=== PATIENT | female | born 1995 | race Caucasian/White ===

== ENCOUNTER 2017-04-29 12:43 | Inpatient (IN) ==
[2017-04-29] MEDS: LACTATED RINGERS 1,000 ML IV SCH ×2 (13:25→16:17)
[2017-04-29] MEDS ORDERED: BUTORPHANOL 2 MG/ML VIAL IV PRN (13:42)
[2017-04-29] MEDS ORDERED: MEPERIDINE 50 MG/1 ML VIAL IV PRN (13:42)
[2017-04-29] MEDS ORDERED: ONDANSETRON 4 MG/2 ML VIAL IV PRN ×2 (13:42→23:27)
[2017-04-29 14:10] LABS: Basophils % 0.1 % (0.0-0.8); Eosinophils % 0.1 % (0.00-10.9); Hematocrit 37.6 VOL% (35.7-47.0); Hemoglobin 13.8 GM/DL (12.0-16.0); Immature Granulocytes % 0.4 %; Immature Granulocytes Absolute 0.06 #; Lymphocytes # 1.7 10*3/uL (1.4-4.0); Lymphocytes % 12.6 % (21.3-54.2); Mean Corpuscular HGB Conc 36.7 GM/DL (32-36); Mean Corpuscular Hemoglobin 34 PG (27-34); Mean Corpuscular Volume 92.4 FL (87-102); Mean Platelet Volume 13.2 FL (9.6-12.0); Monocytes # 0.9 10*3/uL (0.11-0.8); Monocytes % 6.8 % (1.7-12.7); Platelet Count 130 T/CUMM (130-400); Red Blood Count 4.07 MC/CUMM (3.8-5.5); Red Cell Distribution Width 12.4 % (9.3-17.3); White Blood Count 13.8 T/CUMM (4-12)
[2017-04-29] MEDS ORDERED: CITRIC ACID/SODIUM CITRATE 30 ML UDCUP PO ONE (14:14)
[2017-04-29] MEDS ORDERED: FAMOTIDINE 20 MG/2 ML VIAL IV ONE (14:14)
[2017-04-29] MEDS ORDERED: diphenhydrAMINE 50 MG/1 ML VIAL IV PRN ×3 (14:15→23:27)
[2017-04-29] MEDS ORDERED: hydrOXYzine HCL 25 MG/1 ML VIAL IM PRN (14:15)
[2017-04-29] MEDS ORDERED: ePHEDrine 50 MG/ML AMP IV PRN (14:15)
[2017-04-29] MEDS ORDERED: PROMETHAZINE 25 MG/1 ML VIAL IM ONE (14:15)
[2017-04-29] MEDS ORDERED: fentaNYL 2 MCG/ROPIV 0.2% EPID 150 ML EPIDURAL SCH (14:15)
[2017-04-29] MEDS ORDERED: LACTATED RINGERS 1,000 ML IV ONE (14:28)
[2017-04-29] MEDS ORDERED: LACTATED RINGERS 1,000 ML IV SCH ×2 (14:30→23:30)
--- NOTE | 2017-04-29 15:34 | OB/GYN History & Physical ---
History of Present Illness Chief complaint: labor History of present illness: Ms. Yarbrough is a 22 year old female at 40 wks who presents today in labor. Pt seen yesterday and . Today 2-3 cm with contractions every 2-3 minutes. Reports that it started about 0500 and has gotten progressively worse throughout the day. Currently comfortable with epidural. course uneventful. No medical history. R/B/A to delivery reviewed. 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 FHTs reassuring. Contractions q 2-3 minutes. AROM, clear. 3-4/80/0), other Assessment and Plan (1) 40 weeks gestation of Status: Acute Current Visit: Yes (2) Active labor at term Status: Acute Assessment and plan: Anticipate AROM ~1525, clear Current Visit: Yes Results - Labs CBC & BMP: 04/29/17 14:01
[2017-04-29 16:51] LABS: Apearance,Urine CLEAR (Clear); Bacteria,Urine Occasional /HPF (Few); Bilirubin,Urine Negative (Negative); Blood, Urine Negative (Negative); Glucose,Urine (UA) Negative (Negative); Ketones,Urine 80 mg/dL (Negative); Mucus,Urine Occasional /LPF (Occasional); Nitrite,Urine Negative (Negative); Protein,Urine Negative; RBC,Urine 5 /HPF (0-4); Squamous Epithelial Cell,Urine Occasional /HPF (0-10); Urine Color Yellow (Yellow); Urine Specific Gravity 1.021 (1.001-1.035); Urine Urobilinogen < 2.0 EU/DL (0.2-1.0); WBC,Urine 1 /HPF (0-6)
[2017-04-29] MEDS ORDERED: OXYTOCIN/LR 20 UNIT/1,000 ML BAG IV ONE (19:23)
[2017-04-29] MEDS ORDERED: miSOPROStol 200 MCG TABLET VAG ONE (19:26)
[2017-04-29] MEDS ORDERED: miSOPROStol 200 MCG TABLET ONE (19:30)
[2017-04-29] MEDS ORDERED: METHYLERGONOVINE 0.2 MG/1 ML AMP ONE (19:30)
[2017-04-29] MEDS ORDERED: LIDOCAINE 1% 50 ML VIAL ONE (19:31)
[2017-04-29] MEDS ORDERED: SODIUM CHLORIDE 0.9% 100 ML IV ONE (21:55)
--- NOTE | 2017-04-29 21:55 | OB/GYN Progress Note ---
Assessment and Plan (1) 40 weeks gestation of Status: Acute Current Visit: Yes (2) Active labor at term Status: Acute Assessment and plan: AROM ~1525, clear Complete and pushing without descent. 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 Progressed to 8 cm by 1800. Complete at 1915. Allowed to labor down for ~90 minutes with minimal descent of vertex. Pt pushed for 40 mins. Kiwi applied over 3 contractions at +1 station. No descent. Explained to the patient that I believe a C Section is in her best interest secondary to CPD. R/B/A to surgery discussed. Pt verbalized understanding and is willing to proceed. Exam MOTOR EQUIPMENT LIEUTENANT - Constitutional Vitals: Vital Signs Temp Pulse Resp BP Pulse Ox 04/29/17 20:00 98.5 F 82 18 109/58 100 04/29/17 16:00 97.7 F General appearance: normal weight, no acute distress - Head Head exam: Present: normal inspection, normocephalic - GI/Abdominal GI/Abdominal exam: Present: other (1 episode of bradycardia with good recovery just prior to application of vacum. FHT currently reassuring. Contractions q 1 -2 minutes.) Results - Labs CBC & BMP: 04/29/17 14:01
[2017-04-29] MEDS ORDERED: HYDROmorphone 2 MG/1 ML VIAL ONE (22:36)
[2017-04-29] MEDS ORDERED: OXYTOCIN 10 UNIT/ML VIAL ONE ×2 (22:37→23:39)
[2017-04-29 23:17] LABS: Cord Arterial Blood HCO3 25.3 MMOL/L
[2017-04-29 23:18] LABS: Cord Venous Blood HCO3 21.3 MMOL/L; Cord Venous Blood PCO2 42.7 MMHG; Cord Venous Blood PO2 24.6
--- NOTE | 2017-04-29 23:24 | Operative Note ---
Date of procedure: 04/29/17 Pre-op diagnosis: 1. 40 wk IUP 2. Failed VAE 3. CPD Post-op diagnosis: same Procedure: TECHNIQUE: Patient taken to the OR where epidural anesthesia tested and found to be adequate. Benavides placed. Patient prepped and draped in sterile fashion. Incision was made 2 finger breadths above symphysis pubis]and carried down to the underlying fascia. Fascia scored in the midline and incision extended to either side with Gaytan scissors. Jose clamps then placed superiorly and inferiorly and fascia dissected away from the rectus. Peritoneum then entered sharply. Incision extended bluntly. Kevin retractor placed. Bladder flap created sharply. Uterus entered sharply and the incision extended bluntly. [Clear fluid noted]. Infant delivered in cephalic presentation. Handed off to awaiting NICU team after cord clamped and cut. [Placenta delivered.] [Uterus cleared of clots and debris]. Uterus closed in 2 layers with Vicryl suture. Pelvis copiously irrigated. Sugicel placed over uterine incision. [Normal uterus, tubes and ovaries]. [Female] in [cephalic] presentation. [8] lbs [3]oz. APGARS [9]/[9]. Fascia closed from either side to midline with Vicryl suture. Skin closed with [4-0 Monocryl]. Sponge, lap and needle counts correct x2. Patient taken to recovery in stable condition. Anesthesia: epidural Surgeon / Physician: Sanam Hall Dna Sequencing Associate: Loli Castro Estimated blood loss: other (650) Specimens: none sent Condition: stable Disposition: PACU Results - Labs CBC & BMP: 04/29/17 14:01 Discharge Plan - Discharge Medications No Action Vits #90/Iron Fum/FA [ Formula Tablet] 1 each PO DAILY - Follow Up or Referral - Forms/Instructions
[2017-04-29] MEDS ORDERED: HYDROmorphone 2 MG/1 ML VIAL IV PRN (23:27)
[2017-04-29] MEDS ORDERED: SODIUM CHLORIDE 0.9% 1,000 ML IV SCH (23:30)
[2017-04-29] MEDS ORDERED: KETOROLAC 30 MG/1 ML VIAL ONE (23:35)
[2017-04-29] MEDS ORDERED: ROPIVACAINE 0.5% 30 ML VIAL ONE (23:36)
[2017-04-29] MEDS ORDERED: ACETAMINOPHEN 1,000 MG/100 ML VIAL IV ONE (23:36)
[2017-04-30] MEDS ORDERED: SIMETHICONE CHEW 80 MG TABLET PO PRN (00:23)
[2017-04-30] MEDS ORDERED: OXYTOCIN/LR 20 UNIT/1,000 ML BAG IV ONE (00:23)
[2017-04-30] MEDS ORDERED: LACTATED RINGERS 1,000 ML IV SCH (00:23)
[2017-04-30] MEDS ORDERED: ACETAMINOPHEN 500 MG TABLET PO ONE (05:00)
[2017-04-30] MEDS ORDERED: ACETAMINOPHEN INJ 1,000 MG in PREMIX 1 EACH IV ONE (05:00)
[2017-04-30] MEDS ORDERED: RHO(D) IMMUNE GLOBULIN 300 MCG SYRINGE IM ONE (06:00)
[2017-04-30 06:13] LABS: Basophils % 0.1 % (0.0-0.8); Hemoglobin 10.8 GM/DL (12.0-16.0); Immature Granulocytes % 0.5 %; Immature Granulocytes Absolute 0.07 #; Lymphocytes # 1.4 10*3/uL (1.4-4.0); Lymphocytes % 8.9 % (21.3-54.2); Mean Corpuscular Hemoglobin 34 PG (27-34); Mean Corpuscular Volume 94.6 FL (87-102); Mean Platelet Volume 12.5 FL (9.6-12.0); Monocytes % 6.8 % (1.7-12.7); Neutrophils # 12.8 10*3/uL (1.4-7.4); Neutrophils % 83.7 % (38.7-73.9); Platelet Count 109 T/CUMM (130-400); Red Blood Count 3.17 MC/CUMM (3.8-5.5); Red Cell Distribution Width 12.5 % (9.3-17.3); White Blood Count 15.2 T/CUMM (4-12)
[2017-04-30 06:47] LABS: Band Neutrophils 2 % (0-10); Hypochromasia 1+; Lymphocytes 6 % (20-55); Microcytosis Slight; Segmented Neutrophils 85 % (50-85); Total Cells Counted 100
[2017-04-30 06:48] LABS: Platelet Estimate Adequate
[2017-04-30] MEDS: DOCUSATE SODIUM 100 MG CAPSULE PO SCH ×2 (08:28→20:24)
[2017-04-30] MEDS: MULTIVITAMIN (PRENATAL) TABLET PO SCH (08:28)
--- NOTE | 2017-04-30 08:42 | OB/GYN Progress Note ---
Assessment and Plan (1) 40 weeks gestation of Status: Acute Current Visit: Yes (2) Active labor at term Status: Acute Assessment and plan: AROM ~1525, clear Complete and pushing without descent. 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 Exam CABIN SERVICE AGENT - Constitutional Vitals: Vital Signs Temp Pulse Resp BP Pulse Ox Pulse Ox 04/30/17 06:48 18 04/30/17 06:00 18 04/30/17 05:00 18 04/30/17 03:45 98.0 F 58 L 18 113/65 97 04/30/17 02:45 64 18 109/70 97 04/30/17 01:45 97.6 F 56 L 20 109/62 96 04/30/17 01:08 113/58 04/30/17 01:00 116/58 04/30/17 00:53 123/84 04/30/17 00:38 109/61 04/30/17 00:23 117/54 04/30/17 00:00 97.8 F 54 L 20 107/54 04/29/17 20:00 98.5 F 82 18 109/58 100 04/29/17 16:00 97.7 F General appearance: normal weight, no acute distress - Head Head exam: Present: normal inspection, normocephalic - Eye Eye exam: Present: EOMI - GI/Abdominal GI/Abdominal exam: Present: soft, other (Incision intact) Results - Labs CBC & BMP: 04/30/17 06:05
[2017-04-30] MEDS: IBUPROFEN 800 MG TABLET PO PRN ×2 (13:59→23:23)
[2017-04-30] MEDS: MAGNESIUM HYDROXIDE SUSP 30 ML UDCUP PO PRN (17:56)
--- NOTE | 2017-04-30 18:39 | Anesthesia Post-Op ---
Anesthesia Post OP - Post Ansesthetic Evaluation Patient seen in post op: Yes Resp: within normal limits CV: within normal limits Mental: within normal limits Temp: within normal limits [id number]: within normal limits Nausea and Vomiting: within normal limits Pain: within normal limits
[2017-05-01] MEDS: MULTIVITAMIN (PRENATAL) TABLET PO SCH (08:43)
[2017-05-01] MEDS: IBUPROFEN 800 MG TABLET PO PRN ×2 (08:43→17:59)
[2017-05-01] MEDS: DOCUSATE SODIUM 100 MG CAPSULE PO SCH ×2 (08:43→21:48)
--- NOTE | 2017-05-01 09:29 | OB/GYN Progress Note ---
Assessment and Plan (1) 40 weeks gestation of Status: Acute Current Visit: Yes (2) Active labor at term Status: Acute Assessment and plan: AROM ~1525, clear Complete and pushing without descent. 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 Interval history: Feels sore this am Exam SYSTEMS ANALYST ENGINEER - Constitutional Vitals: Vital Signs Temp Pulse Resp BP Pulse Ox 05/01/17 06:00 18 05/01/17 05:00 18 05/01/17 04:00 97.1 F L 80 18 109/50 98 05/01/17 03:00 18 05/01/17 01:00 18 05/01/17 00:00 97.5 F L 70 20 107/67 98 04/30/17 20:00 97.6 F 73 20 112/66 98 04/30/17 16:00 98.1 F 87 18 116/80 04/30/17 12:00 97.7 F 64 18 111/63 04/30/17 11:32 98.1 F 64 18 111/64 General appearance: no acute distress - Head Head exam: Present: normocephalic - Eye Eye exam: Present: EOMI - GI/Abdominal GI/Abdominal exam: Present: other (Incision intact) Results - Labs CBC & BMP: 04/30/17 06:05
[2017-05-01] MEDS: MAGNESIUM HYDROXIDE SUSP 30 ML UDCUP PO PRN (21:48)
[2017-05-02] MEDS: IBUPROFEN 800 MG TABLET PO PRN (07:31)
[2017-05-02 07:45] VITALS: BP 114/76
[2017-05-02] MEDS: MULTIVITAMIN (PRENATAL) TABLET PO SCH (07:59)
[2017-05-02] MEDS: DOCUSATE SODIUM 100 MG CAPSULE PO SCH (07:59)
--- NOTE | 2017-05-02 08:52 | Discharge Summary ---
Hospital Course - Hospital Course Hospital Course: Routine Postop course without complication. Pt feels good this morning and is ready to home Diagnosis - Discharge Diagnosis (1) 40 weeks gestation of Status: Acute (2) Active labor at term Status: Acute (3) Status post primary low transverse section Status: Acute Discharge Plan - Discharge Data Disposition: Disch To Home/Self Care Condition at Discharge: Stable Discharge Diet: advance to your usual diet Activity: other (routine post op) Hygiene: may shower Weight Bearing at Discharge: full weight bearing Driving: not for (2 weeks) Contact your physician if you experience:: fever over 101, Difficulty voiding, Redness or swelling - Discharge Medications New HYDROcodone/ACETAMIN 5-325 [[place] 5-325] 2 tablet PO Q6H PRN #20 tablet PRN Reason: Pain Severe (8-10) Ibuprofen Tab [Motrin Tab] 800 mg PO Q8H PRN #30 tablet PRN Reason: Pain Severe (8-10) Docusate Sodium Cap [Colace Cap] 100 mg PO BID #30 capsule No Action Vits #90/Iron Fum/FA [ Formula Tablet] 1 each PO DAILY - Follow Up or Referral - Forms/Instructions Exam - Constitutional Vitals: Period Temp Pulse Resp BP Sys/Be Pulse Ox Last 24 Hr 97.1 F-98.2 F 57-73 18-20 114-130/69-82 97-100 General appearance: normal weight, no acute distress - Head Head exam: Present: normal inspection, normocephalic - Eye Eye exam: Present: EOMI Pupils: Present: CHRISTA - GI/Abdominal GI/Abdominal exam: Present: other (Incision intact) DS: Provider Date of admission: 04/29/17 13:43 Primary care physician: . No PCP Attending physician on admission: Sanam Hall MD Consults: 04/30/17 00:23 Consult to Information Architect [CONS] Routine Consult Information Architect: Breast Feeding Discharging clinician: Sanam Hall MD
[2017-05-02] MEDS ORDERED: DIPH/TET/ACEL PERT BOOSTER VACCINE 0.5 ML VIAL IM ONE (10:08)
== END 2017-05-02 11:50 | disposition home or self-care (01) | DRG 540 ==
LOC: N.LDOUT 12:43 → N.LD 12:45 → N.OB 04-30 02:19
PROVIDERS: ADMIT Obstetrics & Gynecology; ATTEND Obstetrics & Gynecology
PROC: LDCSECT (ICD-10-PCS; 2017-04-29 22:33)